=== PATIENT | male | born 2000 | race African-American/Black ===

== ENCOUNTER 2025-02-10 13:31 | Emergency (ER) | payer SELFPAY ==
[2025-02-10] MEDS ORDERED: HYDROcodone/Acetaminophen 5/325 mg Tablet ONE (14:31)
== END 2025-02-10 15:15 | disposition home or self-care (01) ==
LOC: CSHERS 13:31
DX: K03.81 Cracked tooth (principal); I10 Essential (primary) hypertension; K04.7 Periapical abscess without sinus; F17.210 Nicotine dependence, cigarettes, uncomplicated
CPT/HCPCS: 93005; 99283